=== PATIENT | male | born 1970 | race African-American/Black ===

== ENCOUNTER 2019-01-27 04:58 | Day surgery (SDC) | payer OTHER ==
[2019-01-19 12:50] VITALS: BMI 30.1
[2019-01-27] MEDS ORDERED: LIDOCAINE 1%-EPI 1:100,000 30 ML MDV IJ ONE (07:08)
[2019-01-27] MEDS ORDERED: BUPIVACAINE HCL/PF 0.5% (5MG/ML) 10 ML VIAL ONE (07:08)
[2019-01-27] MEDS ORDERED: PROPOFOL 20 ML ONE ×2 (07:18→08:27)
[2019-01-27] MEDS ORDERED: MIDAZOLAM HCL 2 MG/2 ML SINGLE DOSE VIAL ONE (07:18)
[2019-01-27] MEDS ORDERED: SUCCINYLCHOLINE CHLORIDE 200 MG/10 ML VIAL ONE (07:18)
[2019-01-27] MEDS ORDERED: SODIUM CHLORIDE 0.9% P/F 10 ML VIAL IJ ONE (07:21)
[2019-01-27] MEDS ORDERED: LIDOCAINE HCL/PF 2% SDV 5ML VIAL ONE (07:21)
[2019-01-27] MEDS ORDERED: DEXAMETHASONE SOD PHOSPHATE 4 MG/1 ML VIAL ONE (07:21)
[2019-01-27] MEDS ORDERED: KETOROLAC TROMETHAMINE 30 MG/1 ML VIAL ONE (07:21)
[2019-01-27] MEDS ORDERED: ceFAZolin SODIUM 1 GM VIAL ONE (07:21)
--- NOTE | 2019-01-27 08:08 | HP ---
Satellite [facility] - Chief Complaint Chief Complaint: R KNEE PAIN History Source: Patient - Past Medical History Allergies/Adverse Reactions: Allergies Allergy/AdvReac Type Severity Reaction Status Date / Time shellfish derived Allergy Intermediate Verified 01/27/19 06:17 latex Allergy Verified 01/27/19 07:54 - Current Medications Current Medications: Home Medications Medication Instructions Recorded Albuterol Sulfate Inhaler - 1 puff IH PRN PRN 01/19/19 [Ventolin Hfa Inhaler -] Meloxicam 15 mg PO DAILY 01/19/19 Satellite Physical Exam - Physical Examination Vital Signs: Vital Signs Period Temp Pulse Resp BP Sys/Bradley Pulse Ox Last 24 Hr 98.9 F 81 18 131/73 98 Extremities: Other (+ R MEDIAL JOINT LINE TENDERNESS) Satellite Impression/Plan - Impression/Plan Impression: INTERNAL DERANGEMENT R KNEE Operative Procedure: ARTHROSCOPY R KNEE Date to be Performed: 01/27/19
[2019-01-27] MEDS ORDERED: BUPIVACAINE HCL/PF 0.5% (5MG/ML) 10 ML VIAL IJ ONE (08:23)
[2019-01-27] MEDS ORDERED: LIDOCAINE 1%/EPI 1:100000 (50 ML MULTI DOSE VIAL) NR ONE (08:23)
--- NOTE | 2019-01-27 08:53 | OP ---
Operative Note - Note: Operative Date: 01/27/19 ([facility]) Pre-Operative Diagnosis: right knee internal derangement Operation: right knee arthroscopy with PMM, debridement chondroplasty trochlea Post-Operative Diagnosis: Same as Pre-op Surgeon: Narendra Galvez Anesthesia: General, Local Specimens Removed: shavings Estimated Blood Loss (mls): 5 Operative Report Dictated: Yes
--- NOTE | 2019-01-27 09:15 | OP ---
DATE OF OPERATION: 01/27/2019 PREOPERATIVE DIAGNOSIS: Internal derangement, right knee. POSTOPERATIVE DIAGNOSIS: Internal derangement, right knee. PROCEDURE: Arthroscopy, right knee; partial medial meniscectomy and chondroplasty of the trochlea. SURGICAL ATTENDING: Narendra Galvez MD ANESTHESIA: General with LMA. CLOSURE: 4-0 nylon COMPLICATIONS: None. CONDITION: To recovery room in stable condition. DESCRIPTION OF THE OPERATION: Patient was taken to the operating room on January 27, 2019. General anesthesia with LMA was administered by the anesthesiologist. Right lower extremity was prepped and draped in the usual sterile fashion. The medial and lateral infrapatellar portal sites were infiltrated with 1% Xylocaine with epinephrine. Each portal was then made with a 15-blade followed by blunt trocar. Scope was placed in the lateral infrapatellar portal and up into the suprapatellar pouch. The knee was inflated with a cocktail of 10 mL of 1% Xylocaine, 0.5% Marcaine, and 20 mL of arthroscopic saline. After waiting a minute or 2 to allow the anesthetic to work, the procedure was performed. The pouch was visualized to be clean. The medial and lateral gutters were visualized to be clean. The undersurface of the patella was visualized to be intact. The trochlea, however, was visualized to have extensive grade 3-4 changes of its lateral aspect, and a loose articular cartilage was debrided using the shaver. With valgus stress on the knee, the medial compartment was entered. The medial meniscus was visualized, probed, found to have a small complex tear of his posterior horn. This was debrided back to smooth stable meniscal tissue with meniscal biter and arthroscopic shaver. The medial femoral condyle was run and found to be intact, as was the medial tibial plateau. At 90 degrees the ACL was visualized, probed, found to be intact. In the figure 4 position, lateral compartment was entered. Lateral meniscus was visualized, probed, found to be intact. Lateral femoral condyle was run and found to be intact, as was the lateral tibial plateau. The knee was irrigated with copious amounts of irrigation. The knee was inflated with a cocktail of 20 mL of 0.5% Marcaine for postoperative analgesia. The portals were closed in 4-0 nylon. A sterile pressure dressing was placed over the knee. Patient awakened from anesthesia and transferred to recovery room in stable condition. No complications. Estimated blood loss negligible. Napoleon FOREMAN/[id number]
[2019-01-27 10:38] VITALS: TEMP 97.9
[2019-01-27 11:07] VITALS: BP 127/61; PULSE 80
[2019-01-27] MEDS ORDERED: oxyCODONE HCL 5 MG TABLET PO PRN (11:11)
[2019-01-27] MEDS ORDERED: ONDANSETRON 4 MG/2 ML VIAL IVPUSH PRN (11:11)
[2019-01-27] MEDS ORDERED: LACTATED RINGERS SOLUTION 1,000 ML IV SCH (11:15)
--- NOTE | 2019-01-30 15:46 | PATH ---
Surgical Pathology Report Patient Name: SERA PAYTON [facility]. Rec. #: [id number] /Age/Gender: 1970 (Age: 48) / M Account: [id number] Location: [facility] SURGICAL Taken: 01/27/2019 Received: 01/27/2019 Reported: 01/30/2019 Physicians: Narendra Galvez M.D. Specimen(s) Received RIGHT KNEE SHAVINGS Clinical History Right knee internal derangement Final Diagnosis KNEE SHAVINGS, RIGHT, ARTHROSCOPY: FRAGMENTS OF CARTILAGE, DENSE FIBROCONNECTIVE TISSUE, ADIPOSE TISSUE, AND REACTIVE SYNOVIUM. Electronically Signed Mague Campbell M.D. Gross Description Received in formalin, labeled "right knee shavings," is a 5.5 x 5.0 x 0.3 cm. aggregate of beyer-yellow soft tissue fragments. A ict sales representative portion is submitted in one cassette. /01/27/2019 saudi01/27/2019
== END 2019-01-27 11:35 | disposition home or self-care (01) ==
LOC: JASU-SURG 04:58
PROVIDERS: ATTEND Orthopaedic Surgery
PROC: 0SBC4ZZ Excision of Right Knee Joint, Percutaneous Endoscopic Approach (ICD-10-PCS; principal; 2019-01-27 08:00)
DX: S83.231A Complex tear of medial meniscus, current injury, right knee, initial encounter (principal); Y99.9 Unspecified external cause status
CPT/HCPCS: 88304-TC; 94760